=== PATIENT | male | born 1930 | race Caucasian/White ===

== ENCOUNTER → 2016-05-18 | Outpatient (CLI) | payer MEDICARE, BC ==
[~2016-05-18] MED LIST: BETHANECHOL25 MG PO; COLACE 100100 MG/CAP PO; FUROSEMIDE PO; LIPITOR10 MG PO; NORCO 325 MG-51 TAB PO; RITE AID ASPIRI81 M1 PO; SPIRIVA18 MCG IH; SYMBICORT1 AE3 IH; ZESTRIL 10MG10 MG PO
== END ==
LOC: RAD 11:55
DX: H53.9 Unspecified visual disturbance (principal); R51 Headache; J32.0 Chronic maxillary sinusitis; J32.3 Chronic sphenoidal sinusitis

== ENCOUNTER 2017-07-22 16:27 | Emergency (ER) | payer MEDICARE, BC ==
[~2017-07-22] VITALS: Wt 88.1 kg
[2017-07-22] MEDS ORDERED: ZYLOPRIM 100MG100 MG PO (16:38)
[2017-07-22] MEDS ORDERED: FUROSEMIDE20 MG PO (16:38)
[2017-07-22] MEDS ORDERED: BISOPROLOL FUMA1 TA1 PO (16:38)
[2017-07-22 17:15] LABS: EOS # 0.2 (0.04-0.40); EOS % 1.2 % (0.0-4.0); HEMATOCRIT 42.4 % (42.0-52.0); HEMOGLOBIN 13.6 g/dL (13.5-18.0); LYMPH# 1.6 (1.50-4.00); MEAN CELL VOLUME 99 fl (78-100); MEAN CORPUSCULAR HEMOGLOBIN 32 pg (27-31); MEAN CORPUSCULAR HGB CONC 32 g/dL (33-37); MEAN PLATELET VOLUME 10.3 fl (7.4-10.4); MONO # 1.3 (0.20-0.80); PLATELET COUNT 171 K/mm3 (130-400); RED BLOOD COUNT 4.27 M/mm3 (4.20-5.60); WHITE BLOOD COUNT 12.4 K/mm3 (4.8-10.8)
[2017-07-22 17:16] LABS: NEU # 9.1 (1.40-6.50)
[2017-07-22 17:29] LABS: ALBUMIN 3.5 g/dL (3.5-5.0); BUN/CREATININE RATIO 18.6 (6.0-26.0); CALCIUM 8.7 mg/dL (8.4-10.2); POTASSIUM 3.2 mmol/L (3.6-5.0); TOTAL BILIRUBIN 0.9 mg/dL (0.2-1.3); TOTAL PROTEIN 6.9 g/dL (6.3-8.2)
[2017-07-22 20:46] VITALS: BP 143/58
== END 2017-07-22 20:49 | disposition home or self-care (01) ==
LOC: ED 16:27
PROVIDERS: Physician Assistant
DX: I20.9 Angina pectoris, unspecified (principal); I10 Essential (primary) hypertension; J44.9 Chronic obstructive pulmonary disease, unspecified; Z79.02 Long term (current) use of antithrombotics/antiplatelets; Z79.82 Long term (current) use of aspirin

== ENCOUNTER → 2017-10-07 | Outpatient (CLI) | payer MEDICARE, BC ==
[~2017-10-07] MED LIST changes: +BISOPROLOL FUMA1 TA1 PO; +FUROSEMIDE20 MG PO; +ZYLOPRIM 100MG100 MG PO
[2017-10-07 12:36] LABS: BUN/CREATININE RATIO 22.2 (6.0-26.0); CALCIUM 9.7 mg/dL (8.4-10.2); POTASSIUM 4.1 mmol/L (3.6-5.0)
[2017-10-07 12:49] LABS: URINE APPEARANCE CLEAR; URINE BILIRUBIN NEGATIVE (NEGATIVE); URINE BLOOD 50 ery/uL (NEGATIVE); URINE COLOR YELLOW; URINE GLUCOSE NEGATIVE (NEGATIVE); URINE KETONE NEGATIVE (NEGATIVE); URINE LEUKOCYTE ESTERASE 2+ (NEGATIVE); URINE MUCUS PRESENT (NOT PRESENT); URINE NITRATE POSITIVE (NEGATIVE); URINE PROTEIN(semi-quant) 1+ mg/dL (NEGATIVE); URINE UROBILINOGEN NORMAL (NORMAL); URINE WBC >50 /hpf (0-3)
== END ==
LOC: LAB 12:14
PROVIDERS: Family Medicine
DX: R60.9 Edema, unspecified (principal)

== ENCOUNTER → 2018-04-05 | Outpatient (CLI) | payer MEDICARE, BC ==
[2018-04-05 10:36] LABS: CALCIUM 9.4 mg/dL (8.4-10.2); POTASSIUM 3.3 mmol/L (3.6-5.0)
== END ==
LOC: LAB 09:53
PROVIDERS: Family Medicine
DX: R60.0 Localized edema (principal)

== ENCOUNTER 2019-06-22 13:01 | Emergency (ER) | payer MEDICARE, BC ==
[~2019-06-22] VITALS: Ht 177.8 cm; Wt 86.4 kg
[2019-06-22] MEDS ORDERED: ATORVASTATIN CA20 MG PO (13:18)
[2019-06-22] MEDS ORDERED: ASPIRIN E.C. 8181 MG PO (13:20)
[2019-06-22] MEDS ORDERED: PERFOROMIS20 MCG/21 IH (13:21)
[2019-06-22 13:52] LABS: EOS # 0.5 (0.04-0.40); HEMATOCRIT 45.3 % (42.0-52.0); HEMOGLOBIN 14.1 g/dL (13.5-18.0); LYMPH# 1.1 (1.50-4.00); MEAN CELL VOLUME 101 fl (78-100); MEAN CORPUSCULAR HEMOGLOBIN 32 pg (27-31); MEAN CORPUSCULAR HGB CONC 31 g/dL (33-37); MEAN PLATELET VOLUME 10.3 fl (7.4-10.4); MONO # 0.9 (0.20-0.80); NEU # 6.1 (1.40-6.50); PLATELET COUNT 200 K/mm3 (130-400); RED BLOOD COUNT 4.48 M/mm3 (4.20-5.60); RED CELL DISTRIBUTION WIDTH 13.9 % (11.5-14.5); WHITE BLOOD COUNT 8.6 K/mm3 (4.8-10.8)
[2019-06-22 13:58] LABS: EOS % 5.6 % (0.0-4.0)
[2019-06-22 13:59] LABS: ALBUMIN 3.8 g/dL (3.4-4.8); POTASSIUM 3.5 mmol/L (3.5-5.1)
[2019-06-22 14:01] LABS: CALCIUM 9.1 mg/dL (8.3-10.5)
[2019-06-22 14:02] LABS: TOTAL PROTEIN 7.8 g/dL (6.2-8.1)
[2019-06-22 14:04] LABS: TOTAL BILIRUBIN 1.1 mg/dL (0.2-1.2)
[2019-06-22 14:17] LABS: D-DIMER 0.9 mg/L FEU (0.15-0.50)
[2019-06-22] MEDS ORDERED: NITROSTAT0.4 M1 SL (15:17)
[2019-06-22 15:28] VITALS: BP 130/63
== END 2019-06-22 15:29 | disposition home or self-care (01) ==
LOC: ED 13:01
PROVIDERS: Nurse Practitioner Primary Care
DX: I20.8 Other forms of angina pectoris (principal); I48.91 Unspecified atrial fibrillation; I10 Essential (primary) hypertension; E78.5 Hyperlipidemia, unspecified; J44.9 Chronic obstructive pulmonary disease, unspecified; Z79.82 Long term (current) use of aspirin; Z88.0 Allergy status to penicillin; Z88.8 Allergy status to other drugs, medicaments and biological substances
CPT/HCPCS: Q9967

== ENCOUNTER → 2019-10-25 | Outpatient (CLI) | payer MEDICARE, BC ==
[~2019-10-25] MED LIST changes: +ASPIRIN E.C. 8181 MG PO; +ATORVASTATIN CA20 MG PO; +NITROSTAT0.4 M1 SL; +PERFOROMIS20 MCG/21 IH
== END ==
LOC: VAS 16:37 → RAD 16:45
DX: I25.10 Atherosclerotic heart disease of native coronary artery without angina pectoris (principal)

== ENCOUNTER → 2019-11-09 | Outpatient (CLI) | payer MEDICARE, BC | LOC: CARDREHAB 08:39 → CARDLAB 13:32 | DX: I25.110 Atherosclerotic heart disease of native coronary artery with unstable angina pectoris (principal) | CPT/HCPCS: A9500 ==